=== PATIENT | male | born 1960 | race Caucasian/White ===

== ENCOUNTER 2016-11-17 13:43 | Inpatient (IN) | payer MEDICAID ==
[~2016-11-17] VITALS: Ht 182.9 cm; Wt 76.9 kg
[2016-11-17] MEDS ORDERED: SODIUM CHLORIDE FLUSH 10ML SYR IVF ONE (14:30)
[2016-11-17] MEDS ORDERED: SODIUM CHLORIDE FLUSH 10ML SYR IVF PRN (14:30)
[2016-11-17] MEDS ORDERED: LACTATED RINGERS 1,000 ML IV SCH (15:25)
[2016-11-17] MEDS ORDERED: FENTANYL PF 250 MCG/5ML ONE (15:51)
[2016-11-17] MEDS ORDERED: MIDAZOLAM 1 MG/ML, 2ML ONE (15:51)
[2016-11-17] MEDS ORDERED: BUPIVACAINE/PF 0.5% ONE (15:54)
[2016-11-17] MEDS ORDERED: ROPIvacaine/PF 0.5%, 20 ML ONE (15:54)
[2016-11-17 15:59] LABS: HEMATOCRIT 33.9 % (39.2-51.8); HEMOGLOBIN 11.1 g/dL (13.7-18.0); WHITE BLOOD COUNT 7.8 x10^3/uL (3.4-10)
[2016-11-17] MEDS ORDERED: OXYC5CAP4 PO (16:05)
[2016-11-17] MEDS ORDERED: TRAM50TA2 PO (16:05)
[2016-11-17] MEDS ORDERED: GABA-827 PO (16:05)
[2016-11-17] MEDS ORDERED: METF100010 PO (16:05)
[2016-11-17] MEDS ORDERED: HYDR-3240 PO (16:05)
[2016-11-17 16:10] LABS: ASPARTATE AMINO TRANSFERASE 7 U/L (15-37); BLOOD UREA NITROGEN 12 mg/dL (7-18)
[2016-11-17] MEDS ORDERED: INSULIN SINGLE DOSE, ER SQ-INSULIN ONE (16:18)
[2016-11-17] MEDS ORDERED: CEFAZOLIN 1,000 MG ONE (16:18)
[2016-11-17] MEDS ORDERED: SUCCINYLCHOLINE 20 MG/ML, 10ML ONE (16:18)
[2016-11-17] MEDS ORDERED: PROPOFOL 10 MG/ML, 20ML ONE (16:18)
[2016-11-17] MEDS ORDERED: ONDANSETRON 2MG/ML, 2ML ONE (16:18)
[2016-11-17] MEDS ORDERED: BUPIVACAINE/PF-EPI 0.5% 1:200K ONE (16:39)
[2016-11-17] MEDS ORDERED: TRANEXAMIC ACID 100 MG/ML, 10ML ONE (17:18)
[2016-11-17] MEDS ORDERED: ONDANSETRON 2MG/ML, 2ML IVPush PRN ×2 (18:00→18:30)
[2016-11-17] MEDS ORDERED: HYDROmorphone PCA 30 MG/30 ML IV PRN ×2 (18:00→18:30)
[2016-11-17] MEDS ORDERED: PROMETHAZINE 25 MG/ML, 1ML IV PRN (18:30)
[2016-11-17] MEDS ORDERED: OXYcodone 5 MG/5 ML ORAL.SOL UDC PO PRN (18:30)
[2016-11-17] MEDS ORDERED: ACETAMINOPHEN 325 MG TABLET PO PRN (18:30)
[2016-11-17] MEDS ORDERED: MIDAZOLAM 1 MG/ML, 2ML IV PRN (18:30)
[2016-11-17] MEDS ORDERED: FENTANYL PF 100 MCG/2ML IV PRN (18:30)
[2016-11-17] MEDS ORDERED: EPHEDRINE 50 MG/ML, 1ML IVPush PRN (18:30)
[2016-11-17] MEDS ORDERED: HYDROcodone/APAP 7.5-325MG/15ML UDC PO PRN (18:30)
[2016-11-17] MEDS ORDERED: LABETALOL 5MG/ML, 20ML IV PRN (18:30)
[2016-11-17] MEDS ORDERED: hydrALAzine 20 MG/ML, 1ML IV PRN (18:30)
[2016-11-17] MEDS ORDERED: HYDROmorphone 1 MG/ML, 1ML IV PRN (18:30)
[2016-11-17] MEDS ORDERED: MEPERIDINE/PF 25MG/0.5ML IVPush PRN (18:30)
[2016-11-17] MEDS ORDERED: HYDROmorphone PCA 30 MG/30 ML ONE (18:40)
[2016-11-17] MEDS ORDERED: OXYcodone 5 MG/5 ML ORAL.SOL UDC ONE (18:40)
[2016-11-17] MEDS ORDERED: ACETAMINOPHEN 650 MG/20.3 ML UDC ONE (18:40)
[2016-11-17] MEDS: INSULIN REGULAR 100 UNITS/ML, 3ML VIAL SQ-INSULIN SCH (21:00)
[2016-11-17] MEDS ORDERED: TEMPLATE NON-FORMULARY MED. (Metformin Hcl** (Metformin Hcl Er**) 1,000 MG) PO SCH (21:00)
[2016-11-17] MEDS: GABAPENTIN 400 MG CAPSULE PO SCH ×2 (22:25→22:43)
[2016-11-17] MEDS: SODIUM CHLORIDE FLUSH 10ML SYR IVF SCH (22:46)
[2016-11-17] MEDS ORDERED: DEXTROSE 50%, 50ML SYRINGE IVPush PRN (23:00)
[2016-11-17] MEDS ORDERED: GLUCAGON 1 MG IM PRN (23:00)
[2016-11-17] MEDS ORDERED: DEXTROSE 4 GM TAB.CHEW PO PRN (23:00)
[2016-11-18 01:33] VITALS: BP 112/77
[2016-11-18 07:51] VITALS: BP 117/58
[2016-11-18] MEDS: INSULIN REGULAR 100 UNITS/ML, 3ML VIAL SQ-INSULIN SCH ×4 (07:56→22:06)
[2016-11-18] MEDS: SODIUM CHLORIDE FLUSH 10ML SYR IVF SCH ×2 (09:59→21:57)
[2016-11-18] MEDS: metFORMIN XR 500 MG TAB.ER.24H PO SCH ×2 (09:59→21:57)
[2016-11-18] MEDS: GABAPENTIN 400 MG CAPSULE PO SCH (11:30)
[2016-11-18] MEDS ORDERED: DIAZEPAM 2 MG TABLET PO PRN (12:30)
[2016-11-18] MEDS: ENOXAPARIN 40 MG/0.4 ML SQ SCH (13:07)
[2016-11-18] MEDS ORDERED: DEXTROSE 50%, 50ML SYRINGE IVPush PRN (14:00)
[2016-11-18] MEDS ORDERED: DEXTROSE 4 GM TAB.CHEW PO PRN (14:00)
[2016-11-18] MEDS: GABAPENTIN 100 MG CAPSULE PO SCH ×2 (15:51→21:00)
[2016-11-18 16:00] VITALS: BP 107/60
[2016-11-18] MEDS: OXYcodone IR 5MG TABLET PO PRN ×3 (19:20→23:56)
[2016-11-18] MEDS ORDERED: HYDROmorphone 1 MG/ML, 1ML IV PRN (20:00)
[2016-11-18 21:50] VITALS: BP 123/76
[2016-11-19 02:14] VITALS: BP 113/74
[2016-11-19 03:33] VITALS: BP 112/68
[2016-11-19] MEDS: OXYcodone IR 5MG TABLET PO PRN ×5 (04:00→22:05)
[2016-11-19] MEDS: GABAPENTIN 100 MG CAPSULE PO SCH ×4 (06:02→21:27)
[2016-11-19 07:33] VITALS: BP 107/63
[2016-11-19] MEDS: INSULIN REGULAR 100 UNITS/ML, 3ML VIAL SQ-INSULIN SCH ×4 (08:04→21:28)
[2016-11-19] MEDS: metFORMIN XR 500 MG TAB.ER.24H PO SCH ×2 (08:04→21:27)
[2016-11-19] MEDS: SODIUM CHLORIDE FLUSH 10ML SYR IVF SCH ×2 (08:08→21:27)
[2016-11-19] MEDS: ENOXAPARIN 40 MG/0.4 ML SQ SCH (12:46)
[2016-11-19 14:02] VITALS: BP 112/76
[2016-11-19 19:49] VITALS: BP 127/76
[2016-11-20 02:11] VITALS: BP 105/72
[2016-11-20] MEDS: OXYcodone IR 5MG TABLET PO PRN ×4 (02:14→20:16)
[2016-11-20] MEDS: GABAPENTIN 100 MG CAPSULE PO SCH ×4 (06:31→20:17)
[2016-11-20 06:55] VITALS: BP 111/77
[2016-11-20] MEDS: INSULIN REGULAR 100 UNITS/ML, 3ML VIAL SQ-INSULIN SCH ×4 (07:28→20:17)
[2016-11-20] MEDS: metFORMIN XR 500 MG TAB.ER.24H PO SCH ×2 (07:29→20:17)
[2016-11-20] MEDS: SODIUM CHLORIDE FLUSH 10ML SYR IVF SCH ×2 (07:30→20:16)
[2016-11-20] MEDS: ENOXAPARIN 40 MG/0.4 ML SQ SCH (12:33)
[2016-11-20 13:51] VITALS: BP 111/76
[2016-11-20 19:20] VITALS: BP 103/68
[2016-11-21 01:59] VITALS: BP 103/69
[2016-11-21] MEDS: GABAPENTIN 100 MG CAPSULE PO SCH ×4 (03:22→20:41)
[2016-11-21] MEDS: OXYcodone IR 5MG TABLET PO PRN ×4 (03:23→22:46)
[2016-11-21] MEDS: INSULIN REGULAR 100 UNITS/ML, 3ML VIAL SQ-INSULIN SCH ×4 (07:50→20:42)
[2016-11-21] MEDS: SODIUM CHLORIDE FLUSH 10ML SYR IVF SCH ×2 (07:50→20:42)
[2016-11-21] MEDS: metFORMIN XR 500 MG TAB.ER.24H PO SCH ×2 (08:19→20:42)
[2016-11-21 08:37] VITALS: BP 95/61
[2016-11-21] MEDS: ENOXAPARIN 40 MG/0.4 ML SQ SCH (12:33)
[2016-11-21 15:24] VITALS: BP 93/59
[2016-11-21 19:33] VITALS: BP 101/66
[2016-11-21 19:36] VITALS: BP 101/66
[2016-11-22 02:18] VITALS: BP 121/63
[2016-11-22] MEDS: GABAPENTIN 100 MG CAPSULE PO SCH ×4 (06:29→21:29)
[2016-11-22] MEDS: OXYcodone IR 5MG TABLET PO PRN ×2 (06:29→20:02)
[2016-11-22] MEDS: INSULIN REGULAR 100 UNITS/ML, 3ML VIAL SQ-INSULIN SCH ×4 (07:46→21:30)
[2016-11-22 09:00] VITALS: BP 91/57
[2016-11-22] MEDS: SODIUM CHLORIDE FLUSH 10ML SYR IVF SCH ×2 (10:04→21:00)
[2016-11-22] MEDS: metFORMIN XR 500 MG TAB.ER.24H PO SCH ×2 (10:04→21:29)
[2016-11-22 12:23] VITALS: BP 99/59
[2016-11-22] MEDS: ENOXAPARIN 40 MG/0.4 ML SQ SCH (12:50)
[2016-11-22 19:14] VITALS: BP 107/69
[2016-11-23 02:06] VITALS: BP 104/64
[2016-11-23] MEDS: GABAPENTIN 100 MG CAPSULE PO SCH (05:15)
[2016-11-23] MEDS: OXYcodone IR 5MG TABLET PO PRN (06:10)
[2016-11-23] MEDS: SODIUM CHLORIDE FLUSH 10ML SYR IVF SCH (08:09)
[2016-11-23] MEDS: metFORMIN XR 500 MG TAB.ER.24H PO SCH (08:09)
[2016-11-23] MEDS: INSULIN REGULAR 100 UNITS/ML, 3ML VIAL SQ-INSULIN SCH (08:09)
[2016-11-23 08:53] VITALS: BP 112/73
== END 2016-11-23 08:55 | disposition home health service (06) | DRG 908 ==
LOC: OR 14:11 → EDIP 14:12 → OR 15:10 → 4NOR 19:55
PROVIDERS: ADMIT Orthopaedic Surgery Orthopaedic Surgery of the Spine; ATTEND Orthopaedic Surgery Orthopaedic Surgery of the Spine
PROC: 0Y6H0Z1 Detachment at Right Lower Leg, High, Open Approach (ICD-10-PCS; principal; 2016-11-17 15:30)
DX: T81.30XA Disruption of wound, unspecified, initial encounter (principal); M86.171 Other acute osteomyelitis, right ankle and foot; E11.69 Type 2 diabetes mellitus with other specified complication; G54.6 Phantom limb syndrome with pain; I10 Essential (primary) hypertension; L08.9 Local infection of the skin and subcutaneous tissue, unspecified; Y83.5 Amputation of limb(s) as the cause of abnormal reaction of the patient, or of later complication, without mention of misadventure at the time of the procedure; Y92.89 Other specified places as the place of occurrence of the external cause
CPT/HCPCS: 36415; 80053; 82947; 82962; 85025; 99285; J0690; J1170; J1650; J1815; J2250; J2405; J2704; J2795; J3010; J3490; J0330

== ENCOUNTER 2016-12-22 15:51 | Inpatient (IN) | payer MEDICAID ==
[~2016-12-22] VITALS: Ht 180.3 cm; Wt 67.1 kg
[~2016-12-22 15:51] MED LIST: GABA-827 PO; HYDR-3240 PO; METF100010 PO; OXYC5CAP2 PO; TRAM50TA2 PO
[2016-12-22] MEDS ORDERED: LIDOCAINE 1%, 2ML ONE (16:11)
[2016-12-22] MEDS ORDERED: LACTATED RINGERS 1,000 ML IV SCH (16:17)
[2016-12-22 16:21] VITALS: BP 133/89
[2016-12-22] MEDS ORDERED: GABA-826 PO (16:34)
[2016-12-22] MEDS ORDERED: HYDR-3307 PO (16:34)
[2016-12-22] MEDS ORDERED: SERTRALINE PO (16:41)
[2016-12-22] MEDS ORDERED: PRAVASTATIN PO (16:41)
[2016-12-22] MEDS ORDERED: CARV3.122 PO (16:41)
[2016-12-22] MEDS ORDERED: ATOR40TA78 PO (16:41)
[2016-12-22] MEDS ORDERED: LISI2.5T PO (16:41)
[2016-12-22] MEDS ORDERED: INSU100V9 SQ (16:44)
[2016-12-22] MEDS ORDERED: REGULAR INSULIN SQ (16:44)
[2016-12-22 16:55] LABS: HEMATOCRIT 43.6 % (39.2-51.8); HEMOGLOBIN 14.4 g/dL (13.7-18.0); WHITE BLOOD COUNT 7.2 x10^3/uL (3.4-10)
[2016-12-22 16:59] LABS: BLOOD UREA NITROGEN 16 mg/dL (7-18)
[2016-12-22] MEDS ORDERED: ONDANSETRON 2MG/ML, 2ML IVPush PRN (17:00)
[2016-12-22] MEDS ORDERED: LABETALOL 5MG/ML, 20ML IV PRN (17:00)
[2016-12-22] MEDS ORDERED: hydrALAzine 20 MG/ML, 1ML IV PRN (17:00)
[2016-12-22] MEDS ORDERED: ACETAMINOPHEN 325 MG TABLET PO PRN (17:00)
[2016-12-22] MEDS ORDERED: PROMETHAZINE 25 MG/ML, 1ML IV PRN (17:00)
[2016-12-22] MEDS ORDERED: OXYcodone 5 MG/5 ML ORAL.SOL UDC PO PRN (17:00)
[2016-12-22] MEDS ORDERED: MIDAZOLAM 1 MG/ML, 2ML ONE (17:01)
[2016-12-22] MEDS ORDERED: FENTANYL PF 100 MCG/2ML ONE ×2 (17:01→19:55)
[2016-12-22 17:02] LABS: ASPARTATE AMINO TRANSFERASE 9 U/L (15-37)
[2016-12-22] MEDS ORDERED: CEFAZOLIN 1,000 MG ONE (18:08)
[2016-12-22] MEDS ORDERED: METOCLOPRAMIDE 5 MG/ML, 2ML ONE (18:08)
[2016-12-22] MEDS ORDERED: ONDANSETRON 2MG/ML, 2ML ONE (18:08)
[2016-12-22] MEDS ORDERED: PROPOFOL 10 MG/ML, 20ML ONE (18:08)
[2016-12-22] MEDS ORDERED: VANCOMYCIN 1,000 MG ONE ×2 (18:36→18:47)
[2016-12-22] MEDS ORDERED: MORPHINE SULFATE 4 MG/ML, 1ML ONE (18:58)
[2016-12-22] MEDS ORDERED: ACETAMINOPHEN 650 MG/20.3 ML UDC ONE (19:55)
[2016-12-22] MEDS ORDERED: HYDROmorphone 1 MG/ML, 1ML ONE (19:56)
[2016-12-22] MEDS ORDERED: OXYcodone 5 MG/5 ML ORAL.SOL UDC ONE (19:56)
[2016-12-22] MEDS: HYDROmorphone 1 MG/ML, 1ML IV PRN ×3 (19:58→20:28)
[2016-12-22] MEDS: FENTANYL PF 100 MCG/2ML IV PRN ×3 (20:00→20:39)
[2016-12-22] MEDS ORDERED: OXYcodone/APAP 5/325MG TABLET PO PRN (22:00)
[2016-12-22] MEDS ORDERED: KETOROLAC 30 MG/1 ML IV PRN (22:00)
[2016-12-22] MEDS ORDERED: ONDANSETRON 2MG/ML, 2ML IV PRN (22:00)
[2016-12-22] MEDS: ENOXAPARIN 40 MG/0.4 ML SQ SCH ×2 (23:00→23:32)
[2016-12-22 23:14] VITALS: BP 115/81
[2016-12-22] MEDS: CEFOTETAN PMX 2GM/50ML 50 ML IVPB SCH (23:32)
[2016-12-23] MEDS: HYDROmorphone 1 MG/ML, 1ML IV PRN ×3 (00:10→12:06)
[2016-12-23 03:05] VITALS: BP 116/81
[2016-12-23 08:18] VITALS: BP 109/7
[2016-12-23] MEDS: INSULIN REGULAR, HUMAN 100 UNITS/ML, 3ML MEDIUM DOSE SS SQ-INSULIN SCH ×3 (08:42→16:19)
[2016-12-23] MEDS ORDERED: ENOXAPARIN 40 MG/0.4 ML SQ SCH (09:00)
[2016-12-23] MEDS: CEFOTETAN PMX 2GM/50ML 50 ML IVPB SCH (12:06)
[2016-12-23] MEDS ORDERED: AMOX1TAB64 PO (14:15)
[2016-12-23 14:32] VITALS: BP 110/76
[2016-12-23 16:09] VITALS: BP 106/69
== END 2016-12-23 16:40 | disposition home or self-care (01) | DRG 494 ==
LOC: ORIP 15:51 → 4NOR 21:00
PROVIDERS: ADMIT Orthopaedic Surgery Orthopaedic Surgery of the Spine; ATTEND Orthopaedic Surgery Orthopaedic Surgery of the Spine
PROC: 0QBG0ZZ Excision of Right Tibia, Open Approach (ICD-10-PCS; 2016-12-22)
PROC: 0QBJ0ZZ Excision of Right Fibula, Open Approach (ICD-10-PCS; principal; 2016-12-22 17:00)
DX: T87.81 Dehiscence of amputation stump (principal); E11.9 Type 2 diabetes mellitus without complications; W05.0XXA Fall from non-moving wheelchair, initial encounter; Y83.8 Other surgical procedures as the cause of abnormal reaction of the patient, or of later complication, without mention of misadventure at the time of the procedure; Y92.89 Other specified places as the place of occurrence of the external cause; Y93.89 Activity, other specified; Y99.8 Other external cause status; Z89.511 Acquired absence of right leg below knee
CPT/HCPCS: 36415; 80053; 82962; 85025; 87070; 87075; 87077; 87147; 87186; 87205; 93005; J0690; J1170; J1650; J1815; J1885; J2250; J2405; J2704; J3010; J3370; J2765; J7120; S0074

== ENCOUNTER 2017-01-16 15:17 | Inpatient (IN) | payer MEDICAID ==
[~2017-01-16] VITALS: Ht 182.9 cm; Wt 66.2 kg
[~2017-01-16 15:17] MED LIST changes: +AMOX1TAB64 PO; +ATOR40TA78 PO; +CARV3.122 PO; +GABA-826 PO; +HYDR-3307 PO; +INSU100V9 SQ; +LISI2.5T PO; +PRAVASTATIN PO; +REGULAR INSULIN SQ; +SERTRALINE PO
[2017-01-16] MEDS ORDERED: LACTATED RINGERS 1,000 ML IV SCH (15:56)
[2017-01-16] MEDS ORDERED: PLEASE ENTER HEIGHT AND WEIGHT MC SCH (16:30)
[2017-01-16] MEDS ORDERED: RIVA20TA PO (16:37)
[2017-01-16] MEDS ORDERED: PROPOFOL 10 MG/ML, 20ML ONE (16:49)
[2017-01-16] MEDS ORDERED: SUCCINYLCHOLINE 20 MG/ML, 10ML ONE (16:49)
[2017-01-16] MEDS ORDERED: ROCURONIUM 10MG/ML,5ML ONE (16:49)
[2017-01-16] MEDS ORDERED: FENTANYL PF 100 MCG/2ML ONE ×2 (16:53→18:27)
[2017-01-16] MEDS ORDERED: MIDAZOLAM 1 MG/ML, 2ML ONE (16:54)
[2017-01-16] MEDS ORDERED: ONDANSETRON 2MG/ML, 2ML ONE (17:00)
[2017-01-16] MEDS ORDERED: CEFAZOLIN 1,000 MG ONE ×2 (17:09)
[2017-01-16] MEDS ORDERED: VANCOMYCIN 1,000 MG ONE (17:16)
[2017-01-16] MEDS ORDERED: METOCLOPRAMIDE 5 MG/ML, 2ML IV PRN (17:30)
[2017-01-16] MEDS ORDERED: ONDANSETRON 2MG/ML, 2ML IVPush PRN (17:30)
[2017-01-16] MEDS ORDERED: HYDROmorphone 1 MG/ML, 1ML IV PRN ×2 (17:30→22:00)
[2017-01-16] MEDS ORDERED: ALBUTEROL SULFATE 2.5 MG/3 ML NPPB PRN (17:30)
[2017-01-16] MEDS ORDERED: hydrALAzine 20 MG/ML, 1ML IV PRN (17:30)
[2017-01-16] MEDS ORDERED: HYDROcodone/APAP 7.5-325MG/15ML UDC PO PRN (17:30)
[2017-01-16] MEDS ORDERED: MEPERIDINE/PF 25MG/0.5ML IVPush PRN (17:30)
[2017-01-16] MEDS ORDERED: FENTANYL PF 100 MCG/2ML IV PRN (17:30)
[2017-01-16] MEDS ORDERED: LABETALOL 5MG/ML, 20ML IV PRN (17:30)
[2017-01-16] MEDS ORDERED: METOPROLOL 1 MG/ML, 5ML IV PRN (17:30)
[2017-01-16] MEDS ORDERED: OXYcodone 5 MG/5 ML ORAL.SOL UDC PO PRN (17:30)
[2017-01-16] MEDS ORDERED: PROMETHAZINE 25 MG/ML, 1ML IV PRN (17:30)
[2017-01-16] MEDS ORDERED: ACETAMINOPHEN 325 MG TABLET PO PRN (17:30)
[2017-01-16] MEDS ORDERED: EPHEDRINE 50 MG/ML, 1ML IVPush PRN (17:30)
[2017-01-16] MEDS ORDERED: ACETAMINOPHEN 650 MG/20.3 ML UDC ONE (18:27)
[2017-01-16] MEDS ORDERED: OXYcodone 5 MG/5 ML ORAL.SOL UDC ONE (18:27)
[2017-01-16] MEDS ORDERED: ONDANSETRON 2MG/ML, 2ML IV PRN (22:00)
[2017-01-16] MEDS ORDERED: PROMETHAZINE 25 MG/ML, 1ML IM PRN (22:00)
[2017-01-16] MEDS ORDERED: KETOROLAC 30 MG/1 ML IV PRN (22:00)
[2017-01-16] MEDS: OXYcodone/APAP 5/325MG TABLET PO PRN (22:29)
[2017-01-16 23:58] VITALS: BP 100/61
[2017-01-17] MEDS ORDERED: CEFAZOLIN PMX 2GM/100ML 100 ML IVPB SCH (01:00)
[2017-01-17] MEDS: CEFAZOLIN PMX 2GM/50ML 50 ML IVPB SCH ×2 (01:38→11:11)
[2017-01-17] MEDS: OXYcodone/APAP 5/325MG TABLET PO PRN ×2 (03:16→11:11)
[2017-01-17 03:46] VITALS: BP 108/72
[2017-01-17] MEDS ORDERED: SULF1TAB24 PO (14:15)
[2017-01-17 15:23] VITALS: BP 123/78
== END 2017-01-17 16:41 | disposition home or self-care (01) | DRG 465 ==
LOC: OR 15:17 → 4NOR 19:45 → OR 01-17 01:06 → 4NOR 01-17 01:07 → OBSVTOIN 01-17 10:35 → INTOOBSV 01-17 10:35 → DCLOUNGE 01-17 15:40 → 4NOR 01-17 15:40 → UNDODISIN 01-17 16:41
PROVIDERS: ADMIT Orthopaedic Surgery Orthopaedic Surgery of the Spine; ATTEND Orthopaedic Surgery Orthopaedic Surgery of the Spine
PROC: 0JBN0ZZ Excision of Right Lower Leg Subcutaneous Tissue and Fascia, Open Approach (ICD-10-PCS; principal; 2017-01-16 17:00)
DX: T87.81 Dehiscence of amputation stump (principal); E11.9 Type 2 diabetes mellitus without complications; Y83.8 Other surgical procedures as the cause of abnormal reaction of the patient, or of later complication, without mention of misadventure at the time of the procedure; Z79.01 Long term (current) use of anticoagulants; Z89.511 Acquired absence of right leg below knee
CPT/HCPCS: 71010; 81001; 82962; 87070; 87075; 87077; 87081; 87086; 87106; 87147; 87186; 87205; G0378; J0690; J1885; J2250; J2405; J2704; J3010; J3370; J0330; J7120